=== PATIENT | female | born 1990 ===

== ENCOUNTER → 2019-08-06 | Outpatient (CLI) | payer BC ==
[~2019-08-06] MED LIST: EUTHYROX50 MCG PO; IBUP800 PO; PRENATAL TABLE1 EAC2 PO
== END | disposition home or self-care (01) ==
LOC: LAB 18:25 → LAB SHORT 18:25
DX: Z34.03 Encounter for supervision of normal first pregnancy, third trimester (principal)
CPT/HCPCS: 87081; 87653

== ENCOUNTER 2019-08-29 22:14 | Inpatient (IN) | payer BC ==
[~2019-08-29] VITALS: Ht 172.7 cm; Wt 102.3 kg
[2019-08-29] MEDS ORDERED: PRENATAL TABLE1 EAC2 PO (23:26)
[2019-08-29] MEDS ORDERED: EUTHYROX50 MCG PO (23:27)
[2019-08-30 00:42] LABS: BASOPHILS ABSOLUTE AUTO 0.03 K/mm3 (0.00-0.23); BASOPHILS PERCENT AUTO 0 % (0-2); EOSINOPHILS ABSOLUTE AUTO 0.01 K/mm3 (0.00-0.68); EOSINOPHILS PERCENT AUTO 0 % (0-6); Hematocrit 39.9 % (33.0-51.0); Hemoglobin 13.5 g/dL (11.5-16.0); IMMATURE GRAN ABSOLUTE AUTO 0.12 K/mm3 (0.00-0.10); IMMATURE GRAN PERCENT AUTO 1 % (0-1); LYMPHOCYTES ABSOLUTE AUTO 1.47 K/mm3 (0.84-5.20); LYMPHOCYTES PERCENT AUTO 8 % (21-46); MONOCYTES ABSOLUTE AUTO 1.03 K/mm3 (0.16-1.47); MONOCYTES PERCENT AUTO 6 % (4-13); Mean Corpuscular HGB 29.9 pg (26.0-34.0); Mean Corpuscular HGB Conc 33.8 g/dL (31.5-36.5); Mean Corpuscular Volume 89 fL (80-100); Mean Platelet Volume 11.4 fL (9.1-12.4); NEUTROPHILS ABSOLUTE AUTO 15.94 K/mm3 (1.96-9.15); NEUTROPHILS PERCENT AUTO 86 % (41-73); Platelet Count 218 K/mm3 (150-400); RDW Coefficient Variation 12.5 % (11.7-14.2); RDW Standard Deviation 40.7 fL (35.1-46.3); Red Blood Cell Count 4.51 M/mm3 (3.80-5.20)
[2019-08-30 03:39] LABS: Hemoglobin 11.9 g/dL (11.5-16.0); Mean Corpuscular HGB 30.7 pg (26.0-34.0); Mean Corpuscular Volume 90 fL (80-100); Platelet Count 200 K/mm3 (150-400); RDW Coefficient Variation 12.5 % (11.7-14.2); RDW Standard Deviation 40.8 fL (35.1-46.3); Red Blood Cell Count 3.88 M/mm3 (3.80-5.20); White Blood Cell Count 23.82 K/mm3 (4.00-11.30)
[2019-08-30 03:53] LABS: International Normalized Ratio 0.93
--- NOTE | 2019-08-30 04:22 | NUR ---
08/30/19 0422 Nestor Lyle ANCEF 2GM GIVEN IV AT 0403
--- NOTE | 2019-08-30 05:04 | NUR ---
PT UP TO ICU 15 FROM OR FOLLOWING POST HEMORRHAGE, D&C, AND CERVICAL LAC REPAIR. PT DROWSY BUT EASILY ROUSABLE. IN ST WITH HR IN THE 120-140S. SBP IN THE 150S. DAVISON IN PLACE DRAINING CLEAR YELLOW URINE. LUNGS CLEAR, SPO2 >90% ON RA. PT HAS VAGINAL PACKING IN PLACE.
--- NOTE | 2019-08-30 05:27 | NUR ---
REPORT GIVEN TO [facility] NURSE. PT TRANSFERRED OUT OF ICU AT 3117
--- NOTE | 2019-08-30 06:55 | NUR ---
OBSTETRIC HEMORRHAGE EBL 500, OR EBL 500, TOTAL 1000. OLER PERFORMING REPAIR, THEN HAD TO GO TO ANOTHER ROOM FOR DELIVERY SO SREEDHAR TOOK OVER TEMPORARILY, OLER RETURNED TO FINISH. RETRACTORS USED TO INSPECT VAGINA, CONTINUED BLEEDING. SUSPECTED CERVICAL TEAR, CALLED OR AND ANESTESIA AT 0245. SECOND IV OBTAINED, TXA GIVEN. PT RECOVERED IN ICU. NO CERVICAL TEAR FOUND, OTHER LACERATIONS IN VAGINA REPAIRED. PACKING IN PLACE, TO STAY UNTIL 12PM TODAY FOR OLER TO REMOVE. HEMORRHAGE INTERVENTION: EBL AT ORINIALLY 400, LATER DECIDED 500. TOTAL EBL AFTER OR 1000. DID NOT UTILIZE HEMORRHAGE CART, PROVIDER IN ROOM AND MANAGING. PITOCIN INFUSED AT 500ML/HR SUFFICIENT. OCCASIONAL FUNDAL MASSAGE PER PROVIDER ORDER DURING REPAIR. METHERGINE AND CYTOTEC NOT INDICATED FOR VAGINAL BLEEDING. O2 NOT INDICATED. JAM, RN
[2019-08-30 16:40] LABS: Hematocrit 26.7 % (33.0-51.0); Hemoglobin 8.9 g/dL (11.5-16.0); Mean Corpuscular HGB 30.3 pg (26.0-34.0); Mean Corpuscular HGB Conc 33.3 g/dL (31.5-36.5); Mean Corpuscular Volume 91 fL (80-100); Mean Platelet Volume 11.2 fL (9.1-12.4); Platelet Count 183 K/mm3 (150-400); RDW Coefficient Variation 12.9 % (11.7-14.2); Red Blood Cell Count 2.94 M/mm3 (3.80-5.20); White Blood Cell Count 22.34 K/mm3 (4.00-11.30)
--- NOTE | 2019-08-30 17:09 | NUR ---
IN ROOM AT 1600 TO REMOVE VAGINAL PACKING. PT PREMEDICATED PER MD ORDER WITH 50MCG OF FENTANYL. DAVISON D/C'D. OK TO REMOVE SECOND IV SITE PER MD. ORDERING CBC SINCE ELEVATED HR HAS BEEN NOTED TODAY. ORDERING SYNTHROID PER PT'S REQUEST TO START IN AM
--- NOTE | 2019-08-30 17:34 | NUR ---
RN ROUNDED TO HELP W/ . INSTRUCT/DEMO CORRECT POSITIONING AND NIPPLE SHAPE AFTER FEEDS. INSTRUCT/DEMO ORAL EXERCISES. INSTRUCTED PARENTS TO DO ORAL EXERCISES 6-8 TIMES/DAY, TO START BEFORE FEEDS TO HELP COORDINATE SUCKING. INSTRUCT/DEMO HAND EXPRESSION AND PUMP SETTINGS AND FREQUENCY. WILL ROUND AGAIN IN THE MORNING.
--- NOTE | 2019-08-30 18:36 | NUR ---
IV TO RIGHT HAND D/C'D WNL. IV TO LEFT HAND INTACT
--- NOTE | 2019-08-30 18:40 | NUR ---
PT WAS ASSISTED UP TO BATHROOM TWO PERSON ASSIST AT 1745. PT UNABLE TO VOID. PT STATED SHE FELT SHAKY AND WANTED TO WAIT ON THE SHOWER BUT WANTED TO SIT UP IN CHAIR IN THE ROOM. WHILE IN THE CHAIR PT STATED SHE WAS STARTING TO FEEL LIGHTHEADED. BP CHECKED AT 1800 AND DROPPED DOWN TO 92/46 WITH PULSE 116. THEN PT BECAME WHITE PALE. PTS EYES THEN ROLLED BACK IN HEAD, PT BEGAN MOANING AND SHAKING, PT STATES SHE WAS AWAKE AND COULD HEAR US BUT SHE WAS NOT VERBALLY RESPONSIVE. EPISODE LASTED APPROXIMATELY 10 SECONDS THEN PT BECAME VERBAL WITH US. MORE RN ASSISTANCE WAS CALLED. 02 VIA NONREBREATHER WAS PLACED AT THIS TIME AT 10LITERS. PT WAS TWO NURSE ASSISTED FROM CHAIR TO BED SITTING IN SEMI FOWLERS BLOOD PRESSURE AT 1803 WAS 119/60 WITH HR 109. FLUID BOLUS STARTED. ORTHOSTATIC BLOOD PRESSURES DONE. LYING SUPINE 123/69 HR 103, SITTING AT EDGE OF BED BP 127/77 HR 129, STANDING PT BECAME DIZZY BP 119/60 WITH HR 150S. MD CALLED AND NOTIFIED OF ALL OF THIS. ORDERS GIVEN FOR THE IV FLUID BOLUS THEN RECHECK ORTHOSTATICS AND THEN CALL MD FOR ORDERS. MD STATED SHE MAY ORDER BLOOD IF PT REMAINS SYMPTOMATIC.
[2019-08-31 05:42] LABS: BASOPHILS ABSOLUTE AUTO 0.03 K/mm3 (0.00-0.23); BASOPHILS PERCENT AUTO 0 % (0-2); EOSINOPHILS ABSOLUTE AUTO 0.05 K/mm3 (0.00-0.68); EOSINOPHILS PERCENT AUTO 0 % (0-6); Hematocrit 23.4 % (33.0-51.0); Hemoglobin 7.6 g/dL (11.5-16.0); IMMATURE GRAN ABSOLUTE AUTO 0.12 K/mm3 (0.00-0.10); IMMATURE GRAN PERCENT AUTO 1 % (0-1); LYMPHOCYTES ABSOLUTE AUTO 3.16 K/mm3 (0.84-5.20); LYMPHOCYTES PERCENT AUTO 19 % (21-46); MONOCYTES ABSOLUTE AUTO 1.16 K/mm3 (0.16-1.47); MONOCYTES PERCENT AUTO 7 % (4-13); Mean Corpuscular HGB 30.2 pg (26.0-34.0); Mean Corpuscular HGB Conc 32.5 g/dL (31.5-36.5); Mean Corpuscular Volume 93 fL (80-100); NEUTROPHILS ABSOLUTE AUTO 12.12 K/mm3 (1.96-9.15); NEUTROPHILS PERCENT AUTO 73 % (41-73); Platelet Count 153 K/mm3 (150-400); RDW Coefficient Variation 13.1 % (11.7-14.2); RDW Standard Deviation 44.3 fL (35.1-46.3); Red Blood Cell Count 2.52 M/mm3 (3.80-5.20); White Blood Cell Count 16.64 K/mm3 (4.00-11.30)
[2019-08-31 11:38] LABS: BASOPHILS ABSOLUTE AUTO 0.02 K/mm3 (0.00-0.23); BASOPHILS PERCENT AUTO 0 % (0-2); EOSINOPHILS ABSOLUTE AUTO 0.02 K/mm3 (0.00-0.68); EOSINOPHILS PERCENT AUTO 0 % (0-6); Hematocrit 23.6 % (33.0-51.0); Hemoglobin 7.9 g/dL (11.5-16.0); IMMATURE GRAN ABSOLUTE AUTO 0.14 K/mm3 (0.00-0.10); IMMATURE GRAN PERCENT AUTO 1 % (0-1); LYMPHOCYTES ABSOLUTE AUTO 2.78 K/mm3 (0.84-5.20); LYMPHOCYTES PERCENT AUTO 16 % (21-46); MONOCYTES PERCENT AUTO 6 % (4-13); Mean Corpuscular HGB 31.1 pg (26.0-34.0); Mean Corpuscular HGB Conc 33.5 g/dL (31.5-36.5); Mean Corpuscular Volume 93 fL (80-100); Mean Platelet Volume 10.9 fL (9.1-12.4); NEUTROPHILS PERCENT AUTO 77 % (41-73); Platelet Count 190 K/mm3 (150-400); RDW Coefficient Variation 13.1 % (11.7-14.2); RDW Standard Deviation 44.2 fL (35.1-46.3); Red Blood Cell Count 2.54 M/mm3 (3.80-5.20); White Blood Cell Count 17.36 K/mm3 (4.00-11.30)
[2019-08-31] MEDS ORDERED: IBUP800 PO (14:16)
== END 2019-08-31 16:12 | disposition home or self-care (01) | DRG 806 ==
LOC: OBS 22:14 → BC 22:14 → OBS 22:57 → BC 23:02
PROVIDERS: ADMIT Obstetrics & Gynecology
PROC: 10E0XZZ Delivery of Products of Conception, External Approach (ICD-10-PCS; principal; 2019-08-29)
PROC: 0KQM0ZZ Repair Perineum Muscle, Open Approach (ICD-10-PCS; 2019-08-29)
PROC: 30233N1 Transfusion of Nonautologous Red Blood Cells into Peripheral Vein, Percutaneous Approach (ICD-10-PCS; 2019-08-29)
PROC: 0UQG7ZZ Repair Vagina, Via Natural or Artificial Opening (ICD-10-PCS; 2019-08-29)
DX: O99.284 Endocrine, nutritional and metabolic diseases complicating childbirth (principal); D62 Acute posthemorrhagic anemia; Z37.0 Single live birth; E03.9 Hypothyroidism, unspecified; Z3A.39 39 weeks gestation of pregnancy; O99.02 Anemia complicating childbirth; O71.3 Obstetric laceration of cervix; O70.1 Second degree perineal laceration during delivery; O36.8930 Maternal care for other specified fetal problems, third trimester, not applicable or unspecified
CPT/HCPCS: 36415; 51702; 59025; 85025; 85027; 85384; 85610; 85730; 86850; 86900; 86901; 86920; 88305; 90471; 90707; A9270-GY; J0330; J0690; J1100; J1885; J2250; J2405; J2590; J2704; J2765; J3010; J7120; U0002

== ENCOUNTER → 2021-07-27 | Outpatient (CLI) | payer OTHER | END | disposition home or self-care (01) | LOC: LAB SHORT 07:44 → PLD 07:44 | DX: Q82.5 Congenital non-neoplastic nevus (principal) | CPT/HCPCS: 88305 ==

== ENCOUNTER → 2021-10-19 | Outpatient (CLI) | payer OTHER ==
[2021-10-20 09:29] LABS: Candida species (DNA Probe) Negative (NEGATIVE); G. vaginalis (DNA Probe) Negative (NEGATIVE); T. vaginalis (DNA Probe) Negative (NEGATIVE)
== END | disposition home or self-care (01) ==
LOC: LAB SHORT 17:10 → LAB 17:10
PROVIDERS: Family Medicine
DX: O99.891 Other specified diseases and conditions complicating pregnancy (principal); N89.8 Other specified noninflammatory disorders of vagina
CPT/HCPCS: 87081; 87150; 87480; 87510; 87660

== ENCOUNTER → 2024-01-21 | Outpatient (CLI) | payer OTHER ==
[2024-01-28 08:25] LABS: HPV HIGH RISK BY TMA Not Detected; HPV SOURCE Cervical
== END ==
LOC: LAB 11:30 → LAB SHORT 11:30
PROVIDERS: Obstetrics & Gynecology
DX: Z01.419 Encounter for gynecological examination (general) (routine) without abnormal findings (principal)
CPT/HCPCS: 87624; G0123

== ENCOUNTER → 2025-01-14 | Outpatient (CLI) | payer BC | LOC: LAB SHORT 10:48 → LAB 10:48 | DX: O09.93 Supervision of high risk pregnancy, unspecified, third trimester (principal) | CPT/HCPCS: 87081; 87150 ==